=== PATIENT | female | born 2000 | race Caucasian/White ===

== ENCOUNTER 2024-12-22 13:47 | Outpatient (AMB) | payer BC, SELFPAY ==
--- NOTE | 2024-12-22 13:50 | MHC.PC.OV ---
Vital Signs 12/22/24 14:01 Height 5 ft 6 in Weight 154 lb BMI 24.9 BP 115/70 Blood Pressure Location Lt brachial Position Sitting Respiration 12 Pulse 86 Pulse Source Pulse Oximeter Temp 98.1 F Temp Source Temporal Artery Scan Pulse Oximetry (%) 100 Oxygen Delivery Method Room Air Intake Visit Reasons: WOOL SPOTTER EST CARE Intake Note: new patient to [facility] Advertising Account Representative Required: No Allergies No Known Allergies Allergy (Verified 12/22/24 13:51) Tobacco use date assessed: 12/22/24 Dental Screening Dental Screen Date: 12/22/24 Did you have a dental visit in the last 12 months?: Yes Did you have a dental problem in the last 6 months where you did not have access to dental care?: No Was dental information given to patient?: Patient has dentist HPI HPI Comments History of Present Illness Details This is a 24-year-old female with a past medical history of Crohn's disease and ADHD presenting to [facility]. She transferred from [facility]. Records transfer pending. Crohn's disease-diagnosed age 15. Currently on infliximab infusion every 8 weeks. Followed by [facility] pediatric Gastroenterology. She has been in remission since using this medication. Last colonoscopy was in 2022. ADHD-diagnosed in 2022. She is currently managed by the psychiatrist at her college. She is graduating this year. She takes Adderall 20 mg daily as needed. She would like to know if I will continue this medication for her when she graduates. No underlying anxiety or depression. Patient has a healthy diet. She drinks alcohol occasionally/socially. She does not smoke. She is currently applying for jobs. She is up-to-date with Gynecology. Patient says she received the influenza vaccine, and she is up-to-date with tetanus immunization. ROS: Constitutional: No unexplained weight loss, fever, chills, fatigue or night sweats. Eyes: No vision changes, blurry vision, double vision, eye pain, eye redness, eye discharge. ENT: No hearing loss, sneezing, congestion, runny nose or sore throat. Respiratory: No shortness of breath, cough or sputum production. Cardiovascular: No chest pain, chest pressure or chest discomfort. No palpitations or pedal edema. Gastrointestinal: No anorexia, nausea, vomiting or diarrhea. No abdominal pain or blood in stool. Genitourinary: No dysuria, hematuria, urinary frequency. Neurologic: No headache, dizziness, syncope, unilateral weakness, ataxia, numbness or tingling in the extremities. Musculoskeletal: No muscle pain, back pain, joint pain or swelling. Hematologic/Lymphatics: No bleeding or bruising. No painful lymph nodes. Skin: No rash or itching. Endocrine: No cold or heat intolerance. No polyuria or polydipsia. Psychiatric: No depression or anxiety. No SI/HI. Physical exam: Constitutional: Alert, in no distress. Head: Normocephalic. Eyes: Pupils are equal, round and reactive to light. Extraocular muscles intact. Ear, Nose and Throat: Canals clear. TMs normal. Normal nasal mucosa. No nasal discharge. No oral lesions. Neck: Supple, Full range of motion. No lymphadenopathy. No palpable thyroid masses. Respiratory: Clear to auscultation. Cardiovascular: S1 S2 regular. No murmurs. No carotid bruits. Gastrointestinal: Abdomen soft, non-tender, non-distended. Normal bowel sounds. No palpable masses.. Neurologic: No focal neurological deficits. Symmetric patellar reflexes. Moves all extremities spontaneously. Sensation intact bilaterally. Skin: No rashes or lesions. Musculoskeletal: No gross deformities. Normal range of motion. Extremities: Warm and well perfused. No clubbing, cyanosis or edema. 3+ peripheral pulses bilaterally. Psychiatric: Normal mood and affect [facility] Medical History (Updated 12/22/24 @ 14:46 by GERMAN Parker) Routine physical examination Screening for cardiovascular condition Crohn disease ADHD (attention deficit hyperactivity disorder) Surgical History (Updated 12/22/24 @ 14:01 by Diane Mejia MA) No pertinent past surgical history Family History (Updated 12/22/24 @ 14:01 by Diane Mejia MA) Father Substance abuse Maternal Grandmother Colon cancer Social History (Updated 12/22/24 @ 13:59 by Diane Mejia MA) Household Members: Other Household Members Other:: roomates Both parents involved: Yes Caregiver staying overnight: No Housing: House Are you a primary furnace caretaker to a significant other at home: No Do you presently have visiting nurse or other home services: No 75 years or older and lives alone: No Patient Tobacco Use Status: Never used Tobacco e-Cigarette/Vaping Use: Never Used Second Hand Smoke Exposure: No Current occupational status: student Cognitive needs: No Hearing needs: No Vision needs: No Questionnaire PHQ-9 Over the last 2 weeks, how often have you been bothered by any of the following problems? 1. Little interest or pleasure in doing things: not at all 2. Feeling down, depressed, or hopeless: not at all 3. Trouble falling or staying asleep, or sleeping too much: not at all 4. Feeling tired or having little energy: not at all 5. Poor appetite or overeating: not at all 6. Feeling bad about yourself - or that you are a failure or have let yourself or your family down: not at all 7. Trouble concentrating on things, such as reading the newspaper or watching television: not at all 8. Moving or speaking so slowly that other people could have noticed. Or the opposite - being so fidgety or restless that you have been moving around a lot more than usual: not at all 9. Thoughts that you would be better off or of hurting yourself in some way: not at all Total score: 0 [id number] - PHQ-9 Billing: Yes Source: Developed by Drs. Mariusz Still, Nely Austin, Brian Shoemaker and colleagues, with an educational conchis from [employer]. Thrive Questionnaire Date Thrive assessed: 12/22/24 I am a: Patient What is your living situation today?: I have a steady place to live Within the past 12 months, did the food you bought not last and you didn't have the money to get more?: Never true Within the past 12 months, did you worry whether your food would run out before you got money to buy more?: Never true Do you have trouble paying for medicines?: No Do you have trouble getting transportation to medical appointments?: No Do you have trouble paying your heating and electricity bill?: No Do you have trouble taking care of your child, family member or friend?: No Do you have trouble with day-to-day activities such as bathing, preparing meals, shopping, managing finances, etc.?: No Are you currently unemployed and looking for a job?: Yes Are you interested in more education?: No Please select the resources that you would like help with: None Currently or been in a relationship where the following occur: No concerns reported THRIVE Score: 0 AUDIT C Alcohol Use Questionnaire (AUDIT-C) 1. How often do you have a drink containing alcohol?: 2-4 times a month 2. How many drinks containing alcohol do you have on a typical day when you are drinking?: 3 or 4 3. How often do you have six or more drinks on one occasion?: Never Total Score: 3 PATRICIA-7 AMB Questionnaire PATRICIA-7 Date PATRICIA - 7 assessed: 12/22/24 Feeling nervous, anxious, or on edge: 0 = Not at all Not being able to stop or control worryin = Not at all Worrying too much about different things: 0 = Not at all Trouble relaxin = Not at all Being so restless that it is hard to sit still: 0 = Not at all Becoming easily annoyed or irritable: 0 = Not at all Feeling afraid as if something awful might happen: 0 = Not at all Total PATRICIA-7 score (0-4 normal; 5-9 mild; 10-14 moderate; 15-21 severe): 0 Source: Developed by Drs. Mariusz Still, Nely Austin, Brian Shoemaker and colleagues, with an educational conchis from [employer]. PATRICIA-7 Assessment Billing PATRICIA-7 Assessment Tool: PATRICIA-7 Assessment 89568 Physical exam (Primary Care) Vital Signs: Last Vital Signs Temp 98.1 F 12/22/24 14:01 Pulse 86 12/22/24 14:01 Resp 12 12/22/24 14:01 BP 115/70 12/22/24 14:01 Pulse Ox 100 12/22/24 14:01 Oxygen Delivery Method Room Air 12/22/24 14:01 BMI result Body Mass Index 24.9 Tobacco/Smoking Status: Tobacco use Status Tobacco use date assessed 12/22/24 12/22/24 14:04 Patient Tobacco Use Status Never used Tobacco 12/22/24 14:04 e-Cigarette/Vaping Use Never Used 12/22/24 14:04 PHQ-9: PHQ-9 Score PHQ-9: Total score 0 12/22/24 14:04 Thrive Assessment: Date of Thrive Assessment Date Thrive assessed 12/22/24 12/22/24 14:04 Currently or been in a relationship where the following occur: No concerns reported Coding Level of Care Code New Pt Prev Care 18-39yr([id number] Diagnoses Routine physical examination Z00.00 Crohn disease K50.90 ADHD (attention deficit hyperactivity disorder) F90.9 Additional Codes PATRICIA-7 Assessment Billing - PATRICIA-7 Assessment Tool: PATRICIA-7 Assessment 72465 ([id number]) PHQ-9 - 92708 - PHQ-9 Billing: Yes ([id number]) Assessment & Plan Assessment & Plan (1) Routine physical examination: Code(s): Z00.00 - Encounter for general adult medical examination without abnormal findings Category: Medical Plan: Patient is seen today for a routine physical. As part of this visit we reviewed the following issues, which are considered and essential part of preventative health in this age group: - Breast Cancer screening - Annual Universal Grinder Set Up Operator exam - Blood pressure screening - Cholesterol screening - Osteoporosis prevention including calcium/vitamin D intake, weight bearing exercise & smoking cessation - Nutritional and exercise counseling - Counseling of injury prevention including fire prevention, smoke alarms and seat belt usage - Screening for depression - Prevention of and/or testing for infectious diseases - patient deferred since she has screenings done with Gynecology - Education about skin cancer - Recommendations about immunizations - Recommendation of an eye exam - Screening for substance abuse - routine lab orders given to patient-she will have them done at her next infusion (2) Crohn disease: Code(s): K50.90 - Crohn's disease, unspecified, without complications Category: Medical Plan: Currently in remission. Continue management per Gastroenterology. (3) ADHD (attention deficit hyperactivity disorder): Code(s): F90.9 - Attention-deficit hyperactivity disorder, unspecified type Category: Medical Plan: I asked the patient to have a letter sent from her psychiatrist or visit notes to confirm treatment. I will continue prescribing this medication for her when she graduates. Advised patient we will need a CSC and UDS done annually. She agreed to this. We will schedule a tentative medication review 6 months from now. Plan Follow up in 6 months for medication review, UDS, CSC. Orders: Orders Comprehensive Met. Panel Today Z00.00 - Encounter for general adult medical examination without abnormal findings Lipid Panel Today Z00.00 - Encounter for general adult medical examination without abnormal findings, Z13.6 - Encounter for screening for cardiovascular disorders Complete Blood Count no Diff Today Z00.00 - Encounter for general adult medical examination without abnormal findings
[2024-12-22 14:01] VITALS: BP 115/70; PULSE 86; RESP 12; TEMP 36.7; O2SAT 100; BMI 24.9
--- OUTSIDE RECORDS SUMMARY | 2024-12-22 17:37 | XMS_ITS | Encounter Summary ---
Author Organization [facility] Address [address] [place] [address] Phone Care Team Providers Care Director Of Gift Planning Name Role Phone Galina Mckee MD Primary Care Provider [phone] Encounter Details Date Type Department Care Team (Late st Contact Info) Description 01/15/2017 Documentation [facility] Family Medicine [address] [place] [address] Family Medicine, Physician [address], [place] [id number] Social History Tobacco Use Types Packs/Day Years Used Date Smoking Tobacco: Never Assessed Comments Unknown Sex and Gender Information Value Date Recorded Sex Assigned at Not on file Legal Sex Female 5:12 PM EDT Gender Identity Not on file Sexual Orientation Not on file documented as of this encounter Plan of Treatment Not on file documented as of this encounter Visit Diagnoses Not on filedocumented in this encounter Care Teams Director Of Gift Planning Relationship Specialty Start Date End Date Galina Mckee MD [address] [place] [address] PCP - General 07/03/17 09/22/23 documented as of this encounter
--- OUTSIDE RECORDS SUMMARY | 2024-12-22 17:37 | XMS_ITS | Clinical Summary ---
Author Organization [facility] Address [address] [place] [address] Phone Care Team Providers Care Firefighter Marine Name Role Phone Unavailable Primary Care Provider Unavailabl e Allergies No known active allergies Medications Multiple Vitamin (MULTIVITAMIN) capsule Take by mouth. 02/11/2017 Active inFLIXimab 100 MG injection Infuse 400 mg into a venous catheter. 02/11/2017 Active Tri-Estarylla 0.18/0.215/0.25 MG-35 MCG per tablet Take 1 tablet by mouth daily in the morning. 05/05/2022 Active amphetamine-dext roamphetamine 20 MG tablet Take 1 tablet by mouth 2 (two) times a day. 06/02/2023 Active Active Problems Problem Noted Date Diagnosed Date Encounter for surveillance of contraceptive pill s 06/14/2020 Overview (06/14/2020): Reviewed use and side effects; wants to use bcp's for regulating her period; will start orthonovum and follow up in 3 months to recheck ;sooner if any problems or concerns on them Assessment & Plan (06/27/2021 2:03 PM EDT): Doing very well with ocps and will continue; no worries; encouraged to schedule material engineer appointment in the next 6 months or so Crohn's disease 02/11/2017 Overview (06/14/2020): Followed by Arturo THOMAS. Treated with Remicade infusions every 8 weeks Since she is on remicade, will treat with PPV 23 vaccine as well ; spoke with arturo THOMAS and Dr. Vu says she can get any vaccines that are NOT live vaccines; so will get trumenba and pneumovax today Assessment & Plan (06/27/2021 2:04 PM EDT): Followed by Dr. Vu and doing well ; gets every 6 week Remicade Assessment & Plan (05/12/2019 4:15 PM EDT): Followed by Dr. Veloz and doing well; on Remicade; follows up every 6 months Assessment & Plan (04/22/2018 3:19 PM EDT): Doing well on Remicade; in remission right now; followed by Dr. Veloz; sees them every 6 months Resolved Problems Problem Noted Date Diagnosed Date Resolved Date Other fatigue 08/18/2018 05/12/2019 Immunizations Name Administration Dates Next Due DTaP 5 10/06/2006, 4,03/14/2003,01/13,2002 HPV Vaccine 9 Valent 07/16/2015 HPV, Quadrivalent 03/13/2015,01/04/2015 Hep A, ped/adol 07/16/2015,01/04/2015 Hep B, ped/adol 06/22/2003,03/14/2003,2002 Hib (PRP-T) 12/12/2003, 3,01/13/2003,11/11 IPV 10/06/2006, 3,01/13/2003,11/11 Influenza Split 10/27/2013, 2,09/10/2011,09/04 Influenza, injectable, MDCK, preservative free, quadrivalent 12/09/2018 Influenza, injectable, quadrivalent 01/04/2015 Influenza, injectable, quadr ivalent, preservative free 08/08/2020,08/30/2019,08/20/2017,08/14,07/16/2015 Influenza, injectable, trivalent 009,10/18/2008,10/06/2006,10/24,09/19/2003 MMR 09/19/2003 MMRV 10/06/2006 Meningococcal B Trumenba 06/27/2021,06/14/2020 Meningococcal Conj (Menactra) MCV4P 05/12/2019,0 12/19/2013 Pneumococcal Conjugate 12/12/2003,2002,01/13/2003,11/11 Pneumococcal Polysaccharide 06/14/2020 Tdap 12/19/2013 Varicella 09/19/2003 Family History Medical History Relation Name Comments ADD / ADHD Brother Eric Asthma Father Anurag Morales Depression Father Anurag Morales Hip dysplasia Father Anurag Morales Substance abuse Father Anurag Morales Hyperlipidemia Maternal Grandfather Hypertension Maternal Grandfather Colon cancer Maternal Grandmother Crohn's disease Maternal Grandmother Anxiety disorder Mother Jeannette Ramos Depression Mother Jeannette Ramos No Known Problems Paternal Grandfather No Known Problems Paternal Grandmother Relation Name Status Comments Brother Eric Alive Brother: Alive and well Father Anurag Morales Alive Father: DDH (hip dysplasia) / asthmaWorks as an electrician elevator maintenance, from patient's mother Maternal Grandfather Alive Maternal Grandmother Materna l grandmother: , Cancer -colon Mother Jeannette Ramos Alive Works a s a labor arbitrator nurse, from patient's father Other Family history of *Heart Disease, No family history of *CVA/Stroke, Family history of *Sudden /[place] under 55, Family history of Migraines, Family history of *Dental caries, Family history of Hyperlipidemia Paternal Grandfather Alive Paternal Grandmother Alive Social History Tobacco Use Types Packs/Day Years Used Date Smoking Tobacco: Never Smokeless Tobacco: Never Tobacco Cessation:Counseling Given: Yes Comments:Never smoker Alcohol Use Standard Drinks/Week Comments No 0 (1 standard drink = 0.6 oz pur e alcohol) Hunger/Food Answer Date Recorded In the last 12 months, did y ou or your family ever eat less than you felt you should because there wasn't enough money for food? No 07/15/2023 Stable Housing Answer Date Recorded Are you worried that in the next 2 months you may not have stable housing? No 07/15/2023 Transportation Concerns Answer Date Rec orded In the last 12 months, have you or your family ever had to go without healthcare because you didn't have a way to get there? No 07/15/2023 Hazards in Home Answer Date Recorded Think about the place you li ve. Do you have problems with any of the following? Pests (mice or roaches), mold, no/not working smoke detectors, water leaks, no window guards. No 2022 Financing Utilities Answer Date Recorde d In the last 12 months, has t he electric, gas, oil, or water company threatened to shut off your services in your home? No 07/15/2023 Safety at Home Answer Date Recorded Are you or your family worried about feeling saf e in your home? No 07/15/2023 Outside Support Answer Date Recorded Do you feel that you need mo re support from other people or programs to help you care for yourself or your family? No 07/15/2023 Understanding Health Concerns Answer Da te Recorded Do you need help understandi ng your or your child's healthcare needs (diagnosis, medications, plan, etc.)? No 07/15/2023 Financing Health Concerns Answer Date R ecorded In the last 12 months, was t here a time when your child needed to see a doctor or get medications or supplies but could not because of cost? No 07/15/2023 Missing School or Work Answer Date Nick rded Did you or your child miss s chool or work because of a health problem that could have been avoided? No 07/15/2023 Comments No Sex and Gender Information Value Date Recorded Sex Assigned at Not on file Legal Sex Female 5:12 PM EDT Gender Identity Not on file Sexual Orientation Not on file Last Filed Vital Signs Vital Sign Reading Time Taken Comments Blood Pressure 120/80 07/15/2023 8:37 AM EDT Pulse 84 07/15/2023 8:37 AM EDT Temperature 36.4 ??C (97.6 ??F) 07/15/2023 8:37 AM ED T Respiratory Rate - - Oxygen Saturation 96% 10/25/2012 12:00 AM EST Inhaled Oxygen Concentration - - Weight 70.9 kg (156 lb 6.4 oz) 07/15/2023 8:37 A M EDT Height 167.6 cm (5' 6 ) 07/15/2023 8:37 AM EDT Body Mass Index 25.24 07/15/2023 8:37 AM EDT Plan of Treatment Health Maintenance Due Date Last Done Comments DTaP,Tdap,and Td Vaccines (7 - Td or Tdap) 12/19/2023 12/19/2013, 10/06/2006, 03/14/2004, Additional history exists Influenza Vaccines (#1) 2024 08/08/20, 08/30/2019, 12/09/2018, Additional history exists COVID-19 Vaccine (2023- 5 season) 2024 07/15/2021, 03/16/2021, 02/23/2021 Hepatitis B Vaccines Completed 06/22/2003, 03/14/2003, 2002 HIB Vaccines Completed 12/12/2003, 02/22, 01/13/2003, Additional history exists IPV Vaccines Completed 10/06/2006, 05/25, 01/13/2003, Additional history exists MMR Vaccines Completed 10/06/2006, 09/19/2003 Varicella Vaccines Completed 10/06/2006, 09/19/2003 HPV Vaccines Completed 07/16/2015, 02/22, 01/04/2015 Hepatitis A Vaccines Completed 07/16/2015, 01/04/20 15 Meningococcal Vaccine Completed 05/12/2019, 014 Pneumococcal Vaccine Completed 06/14/2020, 12/12/2003, 03/14/2003, Additional history exists Men B Vaccine Completed 06/27/2021, 06/14/2020 Procedures * Due to [place] law, this organization might not be sharing sensitive test results. Procedure Name Priority Date/Time Associated Diagnosis Comments CHLAMYDIA AND GONORRHEA, AMPLIFIED Routine 07/15/2023 9:00 AM EDT Special screening examination for chlamydial disease from Last 3 Months or Most Recently Relevant to Health Maintenance Results * Due to [place] law, this organization might not be sharing sensitive test results. * Chlamydia and Gonorrhoea, Amplified (07/15/2023 9:00 AM EDT) Chlamydia Trachomatis, DNA Probe NEGATIVE (NEG) [facility] Comment: No Chlamydia Trachomatis RNA detected in this patient's sample ? (REFERENCE RANGE/NORMAL VALUE: NOT DETECTED) ? Note: This test uses upholstery sewer- mediated amplification method to detect rRNA from C. Trachomatis URINE GC AMP PROBE NEGATIVE (NEG) [facility] Comment: No Neisseria Gonorrhoeae RNA detected in this patient's sample ? (REFERENCE RANGE/NORMAL VALUE: NOT DETECTED) ? NOTE: This test uses upholstery sewer-mediated amplification method to detect rRNA from N.Gonorrhoeae. A negative result does not preclude infection. In the case of a negative urine result, testing of an endocervical(female) or urethral (male) specimen is recommended if there is high clinical suspicion of infection. Due to very high sensitivity of Nucleic Acid Amplification Test, false positive results may occur. Therefore, specimen handling is extremely important. In patients in whom the disease is unlikely, additional sample for testing should be considered after an initial positive result. The performance characteristics of this test have not been evaluated in children. The Aptima Combo2 assay is not intended for the evaluation of suspected sexual abuse or for other medico-legal indications. The ordering provider should assess if the patient had consensual sex without risk of sexual abuse. Consult the [facility] if needed. Contact phone number . Therapeutic failure or success cannot be determined with the Aptima Combo2 assay since nucleic acid may persist following appropriate antimicrobial therapy. The Centers for Disease Control and Prevention (CDC) recommends confirmatory retesting using culture or a different nucleic acid amplification test when positive results occur, if indicated. Testing performed or reported by [facility], a Service of [facility], [address] [place] [address] [place] [address] Jah Menezes MD, Printing Equipment Mechanic [facility]# [id number] Urine (Urine) 07/15/2023 9:0 0 AM EDT 07/15/2023 6:49 PM EDT us Debbie Vicente MD LAB MICROBIOLOGY - GENERAL RASHAD ALEJANDRO Final Result [facility] from Last 3 Months or Most Recently Relevant to Health Maintenance Insurance [employer] BLUE CARD OUT OF STATE
--- OUTSIDE RECORDS SUMMARY | 2024-12-22 17:37 | XMS_ITS | Encounter Summary ---
Author Organization [facility] Address [address] [place] [address] Phone Care Team Providers Care Medical Technician Assistant Name Role Phone Galina Mckee MD Primary Care Provider [phone] Reason for Visit * Reason Comments Med Refill Encounter Details Date Type Department Care Team (Late st Contact Info) Description 05/21/2021 Refill [facility] [place] [address] [place] [address] Janell Leach MD [address] [place] [address] Encounter for surveillance of contraceptive pills Social History Tobacco Use Types Packs/Day Years Used Date Smoking Tobacco: Never Smokeless Tobacco: Never Comments:Never smoker Alcohol Use Standard Drinks/Week Comments No 0 (1 standard drink = 0.6 oz pur e alcohol) Hunger/Food Answer Date Recorded In the last 12 months, did y ou or your family ever eat less than you felt you should because there wasn't enough money for food? No 06/14/2020 Stable Housing Answer Date Recorded Are you worried that in the next 2 months you may not have stable housing? No 06/14/2020 Transportation Concerns Answer Date Rec orded In the last 12 months, have you or your family ever had to go without healthcare because you didn't have a way to get there? No 06/14/2020 Hazards in Home Answer Date Recorded Think about the place you li ve. Do you have problems with any of the following? Pests (mice or roaches), mold, no/not working smoke detectors, water leaks, no window guards. No 2019 Financing Utilities Answer Date Recorde d In the last 12 months, has t he electric, gas, oil, or water company threatened to shut off your services in your home? No 06/14/2020 Safety at Home Answer Date Recorded Are you or your family worried about feeling saf e in your home? No 06/14/2020 Outside Support Answer Date Recorded Do you feel that you need mo re support from other people or programs to help you care for yourself or your family? No 06/14/2020 Understanding Health Concerns Answer Da te Recorded Do you need help understandi ng your or your child's healthcare needs (diagnosis, medications, plan, etc.)? No 06/14/2020 Financing Health Concerns Answer Date R ecorded In the last 12 months, was t here a time when your child needed to see a doctor or get medications or supplies but could not because of cost? No 06/14/2020 Missing School or Work Answer Date Nick rded Did you or your child miss s chool or work because of a health problem that could have been avoided? No 06/14/2020 Comments No Sex and Gender Information Value Date Recorded Sex Assigned at Not on file Legal Sex Female 5:12 PM EDT Gender Identity Not on file Sexual Orientation Not on file documented as of this encounter Miscellaneous Notes * Telephone Encounter - Gayle Hsieh LPN - 05/21/2021 10:59 AM EDT Pharm requesting refill OCP. EH documented in this encounter Plan of Treatment Not on file documented as of this encounter Visit Diagnoses Diagnosis Encounter for surveillance of contraceptive pills documented in this encounter Care Teams Medical Technician Assistant Relationship Specialty Start Date End Date Galina Mckee MD [address] [place] [address] AN[place] Bermudez [address] PCP - General 07/03/17 09/22/23 documented as of this encounter
--- OUTSIDE RECORDS SUMMARY | 2024-12-22 17:37 | XMS_ITS | Encounter Summary ---
Author Organization [facility] Address [address] [place] [address] Phone Care Team Providers Care Patient Escort Name Role Phone Galina Mckee MD Primary Care Provider [phone] Encounter Details Date Type Department Care Team (Late st Contact Info) Description 2010 Documentation [facility] [place] [address] [place] [address] Family Medicine, Physician [address] [place], [place] [address] Social History Tobacco Use Types Packs/Day Years [...] on filedocumented in this encounter Care Teams Patient Escort Relationship Specialty Start Date End Date Galina Mckee MD 150 [facility] [place] [address] PCP - General 07/03/17 09/22/23 documented as of this encounter
--- OUTSIDE RECORDS SUMMARY | 2024-12-22 17:37 | XMS_ITS | Encounter Summary ---
Author Organization [facility] Address [address] [place] [address] Phone Care Team Providers Care Biofuels Product Manager Name Role Phone Galina Mckee MD Primary Care Provider [phone] Reason for Visit * Reason Comments Med Refill Encounter Details Date Type Department Care Team (Late st Contact Info) Description 11/22/2020 Refill [facility] [place] [address] [place] [address] Suresh Carter MD [address] [place] [address] Encounter for initial prescription of contraceptive pills Social History Tobacco Use [...] this encounter Visit Diagnoses Diagnosis Encounter for initial prescription of contraceptive pills documented in this encounter Care Teams Biofuels Product Manager Relationship Specialty Start Date End Date Galina Mckee MD [address] [place] [address] [place] Bermudez [address] PCP - General 07/03/17 09/22/23 documented as of this encounter
--- OUTSIDE RECORDS SUMMARY | 2024-12-22 17:37 | XMS_ITS | Encounter Summary ---
Author Organization [facility] Address [address] [place] [address] Phone Care Team Providers Care Police And Fire Dispatcher Name Role Phone Galina Mckee MD Primary Care Provider [phone] Encounter Details Date Type Department Care Team (Late st Contact Info) Description 2010 Documentation [facility] [place] [address] [place] [address] Family Medicine, Physician [address] [place], [place] [address] Social History Tobacco Use Types Packs/Day Years [...] on filedocumented in this encounter Care Teams Police And Fire Dispatcher Relationship Specialty Start Date End Date Galina Mckee MD 150 [place] [address] PCP - General 07/03/17 09/22/23 documented as of this encounter
--- OUTSIDE RECORDS SUMMARY | 2024-12-22 17:37 | XMS_ITS | Encounter Summary ---
Author Organization [facility] Address [address] [place] [address] Phone Care Team Providers Care Hedge Fund Manager Name Role Phone Galina Mckee MD Primary Care Provider [phone] Encounter Details Date Type Department Care Team (Late st Contact Info) Description 07/08/2017 Documentation [facility] [place] [address] [place] [address] Family Medicine, Physician [address] [place], [place] [address] Social History Tobacco Use Types Packs/Day Years Used Date Smoking Tobacco: Never Comments:Never smoker Comments Unknown Sex and Gender Information Value Date Recorded Sex Assigned at Not on file Legal Sex Female 5:12 PM EDT Gender Identity Not on file Sexual Orientation Not on file documented as of this encounter Plan of Treatment Not on file documented as of this encounter Visit Diagnoses Not on filedocumented in this encounter Care Teams Hedge Fund Manager Relationship Specialty Start Date End Date Galina Mckee MD 150 [place] [address] PCP - General 07/03/17 09/22/23 documented as of this encounter
--- OUTSIDE RECORDS SUMMARY | 2024-12-22 17:37 | XMS_ITS | Encounter Summary ---
Author Organization [facility] Address [address] [place] [address] Phone Care Team Providers Care Office Clerk Assistant Name Role Phone Galina Mckee MD Primary Care Provider [phone] Encounter Details Date Type Department Care Team (Late st Contact Info) Description 07/09/2017 Conversion Encounter [facility] [address] [place] [address] Social History Tobacco Use Types Packs/Day Years [...] on filedocumented in this encounter Care Teams Office Clerk Assistant Relationship Specialty Start Date End Date Galina Mckee MD [address] [place] [address] PCP - General 07/03/17 09/22/23 documented as of this encounter
--- OUTSIDE RECORDS SUMMARY | 2024-12-22 17:37 | XMS_ITS | Encounter Summary ---
Author Organization [facility] Address [address] [place] [address] Phone Care Team Providers Care Data Input Clerk Name Role Phone Galina Mckee MD Primary Care Provider [phone] Reason for Visit * Reason Comments Med Refill Encounter Details Date Type Department Care Team (Late st Contact Info) Description 02/22/2021 Refill [facility] [place] [address] [place] [address] Galina Mckee MD [address] [place] [address] Encounter for surveillance of contraceptive pills Social [...] encounter Miscellaneous Notes * Telephone Encounter - Janell Leach MD - 02/22/2021 4:50 PM EDT Chart reviewed. Script sent. PPP * Telephone Encounter - Jeri Harrington LPN - 02/22/2021 1:27 PM EDT Mom calling requesting refill of ocp's. Last pe 05/2020 documented in this encounter Plan of Treatment Not on file documented as of this encounter Visit Diagnoses Diagnosis Encounter for surveillance of contraceptive pills documented in this encounter Care Teams Data Input Clerk Relationship Specialty Start Date End Date Galina Mckee MD [address] [place] [address] [place] Bermudez [address] PCP - General 07/03/17 09/22/23 documented as of this encounter
--- OUTSIDE RECORDS SUMMARY | 2024-12-22 17:37 | XMS_ITS | Encounter Summary ---
Author Organization [facility] Address [address] [place] [address] Phone Care Team Providers Care Well Drill Operator Name Role Phone Galina Mckee MD Primary Care Provider [phone] Encounter Details Date Type Department Care Team (Late st Contact Info) Description 2010 [place] [facility] [place] [address] [place] [address] Family Medicine, Physician [address] [place], [place] [address] Social History Tobacco Use Types Packs/Day Years [...] on filedocumented in this encounter Care Teams Well Drill Operator Relationship Specialty Start Date End Date Galina Mckee MD 150 [facility] [place] [address] PCP - General 07/03/17 09/22/23 documented as of this encounter
--- OUTSIDE RECORDS SUMMARY | 2024-12-22 17:37 | XMS_ITS | Encounter Summary ---
Author Organization [facility] Address [address] [place] [address] Phone Care Team Providers Care Shipping Clerk Crating Name Role Phone Galina Mckee MD Primary Care Provider [phone] Encounter Details Date Type Department Care Team (Late st Contact Info) Description 08/22/2016 Documentation [facility] [place] [address] [place] [address] Family Medicine, Physician [address] [place], [place] [address] Social History Tobacco Use Types Packs/Day Years [...] on filedocumented in this encounter Care Teams Shipping Clerk Crating Relationship Specialty Start Date End Date Galina Mckee MD 150 [place] [address] PCP - General 07/03/17 09/22/23 documented as of this encounter
== END 2024-12-22 14:55 | disposition home or self-care (01) ==
PROVIDERS: PCP Physician Assistant Medical; Visit Provider Physician Assistant Medical
DX: Z00.00 Encounter for general adult medical examination without abnormal findings (principal); K50.90 Crohn's disease, unspecified, without complications; F90.9 Attention-deficit hyperactivity disorder, unspecified type

== ENCOUNTER → 2024-12-22 13:47 | Outpatient (BNVA) | payer BC, SELFPAY | PROVIDERS: PCP Physician Assistant Medical; Visit Provider Physician Assistant Medical | DX: Z00.00 Encounter for general adult medical examination without abnormal findings (principal); K50.90 Crohn's disease, unspecified, without complications; F90.9 Attention-deficit hyperactivity disorder, unspecified type | CPT/HCPCS: 96127 ==

== ENCOUNTER 2025-06-22 09:07 | Outpatient (AMB) | payer BC, SELFPAY ==
--- NOTE | 2025-06-22 09:17 | MHC.PC.OV ---
Vital Signs 06/22/25 09:20 Height 5 ft 6 in Weight 148 lb 2 oz BMI 23.9 BP 102/68 Blood Pressure Location Rt brachial Position Sitting Pulse 78 Pulse Source Pulse Oximeter Temp 97.8 F Temp Source Temporal Artery Scan Pulse Oximetry (%) 99 Oxygen Delivery Method Room Air Intake Visit Reasons: med review Intake Note: Leanna presents in the office today for a medication review. Allergies No Known Allergies Allergy (Verified 06/22/25 09:18) Tobacco use date assessed: 06/22/25 Dental Screening Dental Screen Date: 06/22/25 Did you have a dental visit in the last 12 months?: Yes Did you have a dental problem in the last 6 months where you did not have access to dental care?: No Was dental information given to patient?: Patient has dentist HPI HPI Comments History of Present Illness Details This is a 24-year-old female with a past medical history of Crohn's disease and ADHD presenting for follow up. Crohn's disease-diagnosed age 15. Currently on infliximab infusion every 8 weeks. Followed by [facility]. She has been in remission since using this medication. Last colonoscopy was in 2022. ADHD-diagnosed in 2022. Previously managed by psychiatrist at [facility]. She graduated. She is working in [place] in [employer]. She takes Adderall 20 mg daily as needed. Agreeable to CSA today. Denies side effects on the medicine. Patient has a healthy diet. She drinks alcohol occasionally/socially. She does not smoke. ROS: Constitutional: No unexplained weight loss Cardiovascular: No chest pain, chest pressure or chest discomfort. No palpitations . Neurologic: No headache, dizziness Psychiatric: No depression or anxiety. No SI/HI. Physical exam: Constitutional: Alert, in no distress Respiratory: Clear to auscultation. Cardiovascular: S1 S2 regular. No murmurs. Psychiatric: Normal mood and affect [facility] Medical History (Updated 06/22/25 @ 09:46 by GERMAN Praker) Routine physical examination Screening for cardiovascular condition Crohn disease ADHD (attention deficit hyperactivity disorder) Surgical History (Updated 12/22/24 @ 14:01 by Diane Mejia MA) No pertinent past surgical history Family History Father Substance abuse Maternal Grandmother Colon cancer Social History (Updated 06/22/25 @ 09:20 by Ina Nagy MA) Household Members: Other Household Members Other:: roomates Both parents involved: Yes Caregiver staying overnight: No Housing: House Are you a primary customer care professional to a significant other at home: No Do you presently have visiting nurse or other home services: No 75 years or older and lives alone: No Alcohol intake: current Patient Tobacco Use Status: Never used Tobacco e-Cigarette/Vaping Use: Never Used Second Hand Smoke Exposure: No service: No Current occupational status: student Cognitive needs: No Hearing needs: No Vision needs: No Questionnaire Thrive Questionnaire Date Thrive assessed: 12/20/24 I am a: Patient What is your living situation today?: I have a steady place to live Within the past 12 months, did the food you bought not last and you didn't have the money to get more?: Never true Within the past 12 months, did you worry whether your food would run out before you got money to buy more?: Never true Do you have trouble paying for medicines?: No Do you have trouble getting transportation to medical appointments?: No Do you have trouble paying your heating and electricity bill?: No Do you have trouble taking care of your child, family member or friend?: No Do you have trouble with day-to-day activities such as bathing, preparing meals, shopping, managing finances, etc.?: No Are you currently unemployed and looking for a job?: Yes Are you interested in more education?: No Please select the resources that you would like help with: None Currently or been in a relationship where the following occur: No concerns reported THRIVE Score: 0 PATRICIA-7 AMB Questionnaire PATRICIA-7 Date PATRICIA - 7 assessed: 12/22/24 Source: Developed by Drs. Mariusz Still, Nely Austin, Brian Shoemaker and colleagues, with an educational conchis from [employer]. Physical exam (Primary Care) Vital Signs: Last Vital Signs Temp 97.8 F 06/22/25 09:20 Pulse 78 06/22/25 09:20 BP 102/68 06/22/25 09:20 Pulse Ox 99 06/22/25 09:20 Oxygen Delivery Method Room Air 06/22/25 09:20 BMI result Body Mass Index 23.9 Tobacco/Smoking Status: Tobacco use Status Tobacco use date assessed 06/22/25 06/22/25 09:25 Patient Tobacco Use Status Never used Tobacco 06/22/25 09:20 e-Cigarette/Vaping Use Never Used 06/22/25 09:20 Thrive Assessment: Date of Thrive Assessment Date Thrive assessed 12/20/24 06/22/25 09:18 Currently or been in a relationship where the following occur: No concerns reported Coding Level of Care Code Est Pt Level 3 (04103) Complex EM visit Add On G2211 Diagnoses Other specified attention deficit hyperactivity disorder (ADHD) F90.8 Attention deficit-hyperactivity disorder type: other specified Assessment & Plan Assessment & Plan (1) ADHD (attention deficit hyperactivity disorder): Code(s): F90.9 - Attention-deficit hyperactivity disorder, unspecified type Category: Medical Qualifiers: Attention deficit-hyperactivity disorder type: other specified Qualified Code(s): F90.8 - Attention-deficit hyperactivity disorder, other type Plan ADHD- Stable. Continue Adderall 20 mg daily as needed for symptoms. CSA signed. Urine drug screen will be done today. Schedule physical exam in 6 months. Orders: Orders Drug Screen Urine Today Z02.83 - Encounter for blood-alcohol and blood-drug test
[2025-06-22 09:20] VITALS: BP 102/68; PULSE 78; TEMP 36.6; O2SAT 99; BMI 23.9
--- OUTSIDE RECORDS SUMMARY | 2025-06-22 09:24 | XMS_ITS | Encounter Summary ---
Author Organization [facility] Address [address] [place] [address] Phone Care Team Providers Care Bleach Tester Name Role Phone Galina Mckee MD Primary Care Provider [phone] Encounter Details Date Type Department Care Team (Late st Contact Info) Description 2010 Documentation [facility] [place] [address] [place] [address] Family Medicine, Physician [address] [place], [place] [address] Social History Tobacco Use Types Packs/Day Years [...] on filedocumented in this encounter Care Teams Bleach Tester Relationship Specialty Start Date End Date Galina Mckee MD 150 [place] [address] PCP - General 07/03/17 09/22/23 documented as of this encounter
--- OUTSIDE RECORDS SUMMARY | 2025-06-22 09:24 | XMS_ITS | Clinical Summary ---
Author Organization [facility] Address [address] [place] [address] Phone Care Team Providers Care Professional Services Manager Name Role Phone Laura Silva Primary Care Provider [phone] Allergies No known active allergies Medications inFLIXimab (REMICADE/UNBRAN DED) 100 mg injection Infuse 40 mL (400 mg total) into a venous catheter 1 (one) time. Q 8 weeks 7 Active multivitamin complete formula with D3000 (COMPLETE D3000) 3,000-800 unit-mcg capsule Take 1 capsule by mouth 1 (one) time each day. 7 Active ascorbic acid (Vitamin C) 1,000 mg tablet Take by mouth 1 (one) time each day. 3 Active cholecalciferol (VITAMIN D-3) 50 mcg (2,000 unit) tablet Take 1 tablet (2,000 Units total) by mouth 1 (one) time each day. Active loratadine (CLARITIN REDITABS) 10 mg dispersible tablet Take 1 tablet (10 mg total) by mouth 1 (one) time each day. Active amphetamine-dext roamphetamine XR (ADDERALL XR) 20 mg 24 hr capsule Take 1 capsule (20 mg total) by mouth 2 (two) times a day. Do not crush or chew. Max Daily Amount: 40 mg Active Active Problems Problem Noted Date Diagnosed Date Crohn's disease (CMS/HCC V24, CMS/HCC V28) 02/11 Overview (04/24/2025): Followed by Arturo THOMAS. Treated with Remicade infusions every 8 weeks Since she is on remicade, will treat with PPV 23 vaccine as well ; spoke with arturo THOMAS and Dr. Vu says she can get any vaccines that are NOT live vaccines; so will get trumenba and pneumovax today Encounters Date Type Department Care Team Description 05/01/2025 Telephone Gastroenterology - [address] [address] [address] Shaw Huffman MD 04/27/2025 Telephone Gastroenterology - [address] [phone] Mar Thakur [place] 04/25/2025 Telephone Gastroenterology - [address] [address] [phone] [place]ak[place] 04/24/2025 2:00 PM EDT Office Visit Gastroenterology - [address] [phone] Shaw Huffman MD Crohn's disease of both small and large intestine without complication (CMS/[facility] V24, CMS/[facility] V28) (Primary Dx) from Last 3 Months Social History Tobacco Use Types Packs/Day Years Used Date Smoking Tobacco: Never Smokeless Tobacco: Never Tobacco Cessation:Counseling Given: Not Answered Alcohol Use Standard Drinks/Week Comments Yes 0 (1 standard drink = 0.6 oz pur e alcohol) occ Comments Unknown Sex and Gender Information Value Date Recorded Sex Assigned at Not on file Legal Sex Female 10:26 AM EDT Gender Identity Not on file Sexual Orientation Not on file Obstetrics History Last Filed Vital Signs Vital Sign Reading Time Taken Comments Blood Pressure - - Pulse - - Temperature - - Respiratory Rate - - Oxygen Saturation - - Inhaled Oxygen Concentration - - Weight 68 kg (150 lb) 04/24/2025 2:06 PM EDT Height 167.6 cm (5' 6 ) 04/24/2025 2:06 PM EDT Body Mass Index 24.21 04/24/2025 2:06 PM EDT Plan of Treatment Upcoming Encounters Date Type Department Care Team (Late Contact Info) Description 10/25/2025 1:00 PM EST Office Visit Gastroenterology - [address] [phone] Shaw Huffman MD [address] [employer] [address] [place] [address] Health Maintenance Due Date Last Done Comments Gonorrhea/Chlamydia Screening 2002 COVID-19 Vaccine (#1) 2007 Cervical Cancer Screening: Pap Smear 2023 DTaP,Tdap,and Td Vaccines (7 - Td or Tdap) 12/19/2023 12/19/2013, 10/06/2006, 03/14/2004, Additional history exists Depression Screening 11/23/2024 HIV Screening 02/15/2025 Hepatitis C Screening 02/15/2025 Social Influencers of Health Screening 02/15/2025 Influenza Vaccine (#1) 2025 , 08/30/2019, 12/09/2018, Additional history exists Hepatitis B Vaccines Completed 06/22/2003, 03/14/2003, 2002 HIB Vaccines Completed 12/12/2003, 02/22, 01/13/2003, Additional history exists IPV Vaccines Completed 10/06/2006, 05/25, 01/13/2003, Additional history exists MMR Vaccines Completed 10/06/2006, 09/19/2003 Varicella Vaccines Completed 10/06/2006, 09/19/2003 HPV Vaccines Completed 07/16/2015, 02/22, 01/04/2015 Hepatitis A Vaccines Completed 07/16/2015, 01/04/20 15 Meningococcal ACWY Vaccine Completed 05/12/2019, Pneumococcal Vaccine: Pediatrics (0 to 5 Years) and At-Risk Patients (6 to 49 Years) Completed 06/14/2020, 12/12/2003, 03/14/2003, Additional history exists Meningococcal B Vaccine Completed 06/27/2021, 06/14 RSV Immunization Patients Under 20 months Aged Out No longer eligible based on patient's age to complete this topic Insurance [facility] ([facility]) Care Teams Professional Services Manager Relationship Specialty Start Date End Date Laura Silva PA [address] [place] [address] PCP - General Physician Acoustic Engineer 02/14/25
== END 2025-06-22 09:43 | disposition home or self-care (01) ==
LOC: HO.HMCFM 09:08
PROVIDERS: PCP Physician Assistant Medical; Visit Provider Physician Assistant Medical
DX: F90.8 Attention-deficit hyperactivity disorder, other type (principal)

== ENCOUNTER 2025-06-22 09:59 | Outpatient (REF) | payer BC, SELFPAY ==
[2025-06-22 11:22] LABS: Hematocrit 39.3 % (37.0-47.0); Hemoglobin 13.2 g/dl (12.0-16.0); Mean Corpuscular HGB Conc 33.6 g/dl (31.0-35.0); Mean Corpuscular Hemoglobin 29.9 pg (27.0-33.0); Mean Corpuscular Volume 89.1 fL (80.0-98.0); NRBC Abs Auto 0.000 X10*3/uL (0.0-0.012); NRBC Pct Auto 0.0 /100WBC (0.0-0.2); Platelet Count 302 X10*3/uL (160-400); Red Blood Count 4.41 X10*6/uL (4.20-5.50); White Blood Count 6.2 X10*3/uL (4.8-10.8)
[2025-06-22 12:16] LABS: Alanine Aminotransferase 19 U/L (0-31); Albumin Level 5.0 g/dL (3.5-5.0); Alkaline Phosphatase 72 U/L (39-117); Anion Gap 10 (12-20); Aspartate Amino Transferase 22 U/L (5-31); Blood Urea Nitrogen 13 mg/dL (9-16); Calcium 9.2 mg/dL (8.4-10.2); Carbon Dioxide 30 mmol/L (22-29); Chloride 104 mmol/L (96-108); Cholesterol 171 mg/dL (<200); Estimated Glomerular Filt Rate > 60; HDL Cholesterol 84 mg/dL (>40); Potassium 4.0 mmol/L (3.3-5.1); Sodium 140 mmol/L (135-145); Total Protein 7.7 g/dL (6.5-8.0); Triglycerides 34 mg/dL (<150)
[2025-06-22 18:01] LABS: Cannabinoid Screen Urine Not Detected (Not Detect)
== END 2025-06-22 10:00 | disposition home or self-care (01) ==
LOC: HO.WFDLDS 09:59
PROVIDERS: Visit Provider Physician Assistant Medical
DX: Z13.6 Encounter for screening for cardiovascular disorders (principal); Z02.83 Encounter for blood-alcohol and blood-drug test
CPT/HCPCS: 80053; 80061; 80307; 85027